=== PATIENT | female | born 1985 | race Caucasian/White ===

== ENCOUNTER 2018-03-19 20:04 | Emergency (ER) | payer BC ==
[2018-03-19 20:30] LABS: Urine Blood NEGATIVE (NEG); Urine Glucose NEGATIVE (NEG); Urine Protein NEGATIVE (NEG)
[2018-03-19 21:01] LABS: Absolute Lymphocytes (CBC) 1.5 K/uL (0.7-4.9); Absolute Monocytes 0.4 K/uL (0.1-1.3); Absolute Neutrophil 5.2 K/uL (1.8-8.0); Basophils % 0.7 % (0-1.3); Eosinophils % 1.6 % (0-4.4); Hematocrit 36.8 % (36.0-45.0); Lymphocytes % 20.1 % (15.3-44.8); MCH 28.7 pg (27.0-35.0); MCV 82.8 fL (80-100); MPV 9.1 fL (7.6-11.3); Monocytes % 6.1 % (3.3-12.3); RBC Red Blood Cell Count 4.44 M/uL (3.86-4.86)
[2018-03-19 21:05] LABS: Protime INR 0.99
[2018-03-19 21:10] LABS: Bicarbonate 31 mEq/L (21-31); Glucose Level 123 mg/dL (65-120); Potassium 3.8 mEq/L (3.6-5.0); Sodium Level 139 mEq/L (135-145)
[2018-03-19 21:16] LABS: ALT/SGPT 27 IU/L (10-60); AST/SGOT 20 IU/L (10-42); Albumin 4.1 g/dL (3.2-5.5); Alkaline Phosphatase 55 IU/L (42-121); BUN Blood Urea Nitrogen 12 mg/dL (6-20); Bilirubin Direct 0.1 mg/dL (0-0.2); Bilirubin Total 0.5 mg/dL (0.3-1.2); Magnesium 1.6 mg/dL (1.8-2.5); Protein, Total 6.6 g/dL (6.0-8.3)
--- NOTE | 2018-03-19 21:40 | RAD REPORT ---
EXAM DESCRIPTION: [place] Single View03/19/2018 9:33 pm CLINICAL HISTORY: Chest pain COMPARISON: none FINDINGS: The lungs appear clear of acute infiltrate. The heart is normal size IMPRESSION: No acute abnormalities displayed
--- NOTE | 2018-03-19 22:12 | ER ---
Nurse's Notes [facility] Name: Isadora Pacheco Age: 32 yrs Sex: Female : 1985 Arrival Date: 03/19/2018 Time: 20:05 Bed 18 Private MD: Casimiro Sanders S Diagnosis: Bronchitis, not specified as acute or chronic Presentation: 03/19 20:08 Presenting complaint: Patient states: that she is having severe chest pain that fc radiates to her back. Also having shortness of breath but denies any nausea or vomiting. Has had cough for 1 month but chest pain has been on and off x 3 months. Pt has seen PCP Dr Sanders for this and has stress test scheduled for March 24. Transition of care: patient was not received from another setting of care. Onset of symptoms was March 19, 2018 at 17:30. Initial Sepsis Screen: Does the patient meet any 2 criteria? No. Patient's initial sepsis screen is negative. Does the patient have a suspected source of infection? No. Patient's initial sepsis screen is negative. Care prior to arrival: None. 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 - Social history:: Smoking status: Patient/guardian denies using tobacco, Patient uses alcohol, but reports only rare drinking. - Family history:: not pertinent. Screenin:19 Abuse screen: Denies threats or abuse. Nutritional screening: No deficits noted. fc Tuberculosis screening: No symptoms or risk factors identified. Fall Risk None identified. Assessment: 20:55 General: Appears uncomfortable, Behavior is cooperative, anxious, crying. Pain: bs1 Complains of pain in chest Pain does not radiate. Pain began gradually, per patient this has been going on for a couple of months and got worse today that it made her very scared. Neuro: Level of Consciousness is awake, alert, obeys commands, Oriented to person, place, time, situation, Appropriate for age Orthoptist are equal bilaterally. Cardiovascular: Reports chest pain, Denies palpitations, Heart tones S1 S2 present Capillary refill < 3 seconds Patient's skin is warm and dry. Respiratory: Reports shortness of breath with chest pain cough that is non-productive, Airway is patent Trachea midline Respiratory effort is even, unlabored, Respiratory pattern is regular, symmetrical, Breath sounds are clear bilaterally. GI: No deficits noted. No signs and/or symptoms were reported involving the gastrointestinal system. : No deficits noted. No signs and/or symptoms were reported regarding the genitourinary system. EENT: No deficits noted. No signs and/or symptoms were reported regarding the EENT system. Derm: Skin is intact, Skin is pink, warm \T\ dry. 21:49 Reassessment: No changes from previously documented assessment. Patient and/or family bs1 updated on plan of care and expected duration. Pain level reassessed. Patient is alert, oriented x 3, equal unlabored respirations, skin warm/dry/pink. 22:45 Reassessment: Patient appears in no apparent distress at this time. Patient and/or bs1 family updated on plan of care and expected duration. Pain level reassessed. Patient is alert, oriented x 3, equal unlabored respirations, skin warm/dry/pink. 23:36 Reassessment: Patient appears in no apparent distress at this time. Patient and/or bs1 family updated on plan of care and expected duration. Pain level reassessed. Patient is alert, oriented x 3, equal unlabored respirations, skin warm/dry/pink. Patient states feeling better. Patient states symptoms have improved. Vital Signs: 20:08 BP 135 / 85; Pulse 74; Resp 18; Temp 98.6(TE); Pulse Ox 100% on R/A; Weight 79.83 kg fc (R); Height 5 ft. 2 in. (157.48 cm) (R); Pain 4/10; 21:08 BP 122 / 72; Pulse 56; Resp 18; Pulse Ox 100% on R/A; Pain 0/10; bs1 22:08 BP 110 / 70; Pulse 58; Resp 16; Pulse Ox 99% on R/A; bs1 23:35 BP 111 / 63; Pulse 53; Resp 18; Pulse Ox 100% on R/A; Pain 0/10; bs1 20:08 Body Mass Index 32.19 (79.83 kg, 157.48 cm) ED Course: 20:05 Patient arrived in ED. es 20:08 Casimiro Sanders MD is Private Physician. es 20:08 Arm band placed on Patient placed in an exam room, on a stretcher. fc 20:14 Karley Somers MD is Attending Physician. ma2 20:17 Triage completed. fc 20:19 Patient has correct armband on for positive identification. Placed in gown. Bed in low fc position. Call light in reach. 20:23 EKG done, by ED staff, reviewed by Karley Somers MD. fc 20:31 Jessica Cameron RN is Primary Nurse. bs1 20:45 Inserted saline lock: 22 gauge in right antecubital area, using aseptic technique. bs1 20:57 groundwater monitoring technician on. Pulse ox on. NIBP on. Sitter at bedside. Warm blanket given. bs1 20:58 Patient maintains SpO2 saturation greater than 95% on room air. bs1 21:33 XRAY Chest (1 view) In Process Unspecified. EDMS 21:33 X-ray completed. Portable x-ray completed in exam room. Patient tolerated procedure ag1 well. 23:35 No provider procedures requiring assistance completed. IV discontinued, bleeding bs1 controlled, No redness/swelling at site. Pressure dressing applied. Administered Medications: No medications were administered Outcome: 22:11 Discharge ordered by . ma2 23:35 Discharged to home ambulatory, with significant other. bs1 23:35 Condition: stable 23:35 Discharge instructions given to patient, Instructed on discharge instructions, follow up and referral plans. medication usage, Demonstrated understanding of instructions, follow-up care, medications, Prescriptions given X 2. 23:36 Patient left the ED. bs1 Signatures: Dispatcher [employer] EDWV Arminda Peralta Felicia, RN RN Mleany Hernandez ag1 Jessica Cameron, MIRELLA RN bs1 Karley Somers MD MD [facility]
--- NOTE | 2018-03-19 22:12 | EDPHYS ---
Physician Documentation [facility] Name: Isadora Pacheco Age: 32 yrs Sex: Female : 1985 Arrival Date: 03/19/2018 Time: 20:05 Bed 18 Private MD: Casimiro Sanders S ED Physician Karley Somers HPI: 03/19 20:38 This 32 yrs old Female presents to ER via Ambulatory with complaints of Chest ma2 Pain. 20:38 The patient or guardian reports chest pain that is located primarily in the anterior ma2 chest wall, chest diffusely. The pain radiates to the left shoulder. Associated signs and symptoms: Pertinent positives: cough, Pertinent negatives: abdominal pain, lower extremity pain, lower extremity swelling, lightheadedness, nausea, near syncope, shortness of breath, syncope, vomiting. Severity of pain: At its worst the pain was moderate in the emergency department the pain has improved. 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 - Social history:: Smoking status: Patient/guardian denies using tobacco, Patient uses alcohol, but reports only rare drinking. - Family history:: not pertinent. ROS: 20:38 Constitutional: Negative for fever, chills, and weight loss, Eyes: Negative for injury, ma2 pain, redness, and discharge, ENT: Negative for injury, pain, and discharge, Neck: Negative for injury, pain, and swelling, Abdomen/GI: Negative for abdominal pain, nausea, diarrhea, and constipation, Back: Negative for injury and pain, : Negative for injury, bleeding, discharge, and swelling, MS/Extremity: Negative for injury and deformity, Skin: Negative for injury, rash, and discoloration, Neuro: Negative for headache, weakness, numbness, tingling, and seizure, Psych: Negative for depression, anxiety, suicide ideation, homicidal ideation, and hallucinations, Allergy/Immunology: Negative for hives, rash, and allergies, Endocrine: Negative for neck swelling, polydipsia, polyuria, polyphagia, and marked weight changes, Hematologic/Lymphatic: Negative for swollen nodes, abnormal bleeding, and unusual bruising. 20:38 Cardiovascular: Positive for chest pain, orthopnea. 20:38 Respiratory: Positive for cough, orthopnea, Negative for hemoptysis, orthopnea. Exam: 20:38 Constitutional: This is a well developed, well nourished patient who is awake, alert, ma2 and in no acute distress. Head/Face: Normocephalic, atraumatic. ENT: Nares patent. No nasal discharge, no septal abnormalities noted. Tympanic membranes are normal and external auditory canals are clear. Oropharynx with no redness, swelling, or masses, exudates, or evidence of obstruction, uvula midline. Mucous membranes moist. Neck: Trachea midline, no thyromegaly or masses palpated, and no cervical lymphadenopathy. Supple, full range of motion without nuchal rigidity, or vertebral point tenderness. No Meningismus. 20:38 Chest/axilla: Normal chest wall appearance and motion. Nontender with no deformity. No lesions are appreciated. Cardiovascular: Regular rate and rhythm with a normal S1 and S2. No gallops, murmurs, or rubs. Normal PMI, no JVD. No pulse deficits. Respiratory: Lungs have equal breath sounds bilaterally, clear to auscultation and percussion. No rales, rhonchi or wheezes noted. No increased work of breathing, no retractions or nasal flaring. Abdomen/GI: Soft, non-tender, with normal bowel sounds. No distension or tympany. No guarding or rebound. No evidence of tenderness throughout. 20:38 ENT: Exam is negative for 20:38 Chest/axilla: Palpation: reproducible chest pain . 20:38 Cardiovascular: Exam negative for Rate: normal, Rhythm: regular, Pulses: no pulse deficits are appreciated, Edema: is not appreciated. Vital Signs: 20:08 BP 135 / 85; Pulse 74; Resp 18; Temp 98.6(TE); Pulse Ox 100% on R/A; Weight 79.83 kg fc (R); Height 5 ft. 2 in. (157.48 cm) (R); Pain 4/10; 21:08 BP 122 / 72; Pulse 56; Resp 18; Pulse Ox 100% on R/A; Pain 0/10; bs1 22:08 BP 110 / 70; Pulse 58; Resp 16; Pulse Ox 99% on R/A; bs1 23:35 BP 111 / 63; Pulse 53; Resp 18; Pulse Ox 100% on R/A; Pain 0/10; bs1 20:08 Body Mass Index 32.19 (79.83 kg, 157.48 cm) fc MDM: 20:15 Patient medically screened. ma2 20:38 Differential diagnosis: acute myocardial infarction, chest wall pain, gastritis, ma2 gastroesophageal reflux disease (GERD), pericarditis, pleurisy, pneumothorax, unstable angina. HEART Score: History: Slightly Suspicious (0), ECG: Normal (0), Age: < or = 45 years (0), Risk Factors: No Risk Factors Known (0), Troponin: < or = 1 x Normal Limit (0). The patient's deep vein thrombosis risk score was calculated as follows: Total Score: 0. This patient was found to be at low risk for a deep vein thrombosis by using the Well's assessment criteria. The patient's pulmonary embolism risk score was calculated as follows: Total Score: 0-2 points. This patient was found to be at low risk for a pulmonary embolism by using the Well's assessment criteria. NEIDA Risk Score: TOTAL SCORE = 0. 22:10 Data reviewed: vital signs, nurses notes, EMS record, lab test result(s), EKG. ma2 Counseling: I had a detailed discussion with the patient and/or guardian regarding: the historical points, exam findings, and any diagnostic results supporting the discharge/admit diagnosis, the need for outpatient follow up, the need for further work-up and treatment in the hospital. 03/19 20:28 Order name: Urine Dipstick--Ancillary (enter results); Complete Time: 21:14 em1 03/19 20:28 Order name: Urine --Ancillary (enter results); Complete Time: 21:14 [facility] 03/19 20:38 Order name: Basic Metabolic Panel; Complete Time: 21:29 2 03/19 20:38 Order name: BNP; Complete Time: 21:29 nj2 03/19 20:38 Order name: CBC with Diff; Complete Time: 21:14 nj2 03/19 20:38 Order name: LFT's; Complete Time: 21:29 03/19 20:28 Order name: Urine Dipstick-Ancillary (obtain specimen); Complete Time: 20:28 03/19 20:28 Order name: Urine Test (obtain specimen); Complete Time: 20:28 03/19 20:38 Order name: Magnesium; Complete Time: 21:29 03/19 20:38 Order name: PT-INR; Complete Time: 21:14 nj03/19 20:38 Order name: Ptt, Activated; Complete Time: 21:14 03/19 20:38 Order name: Troponin (emerg Dept Use Only); Complete Time: 21:29 03/19 20:38 Order name: XRAY Chest (1 view); Complete Time: 21:57 03/19 20:38 Order name: EKG; Complete Time: 20:38 03/19 20:38 Order name: Cardiac monitoring; Complete Time: 20:47 03/19 20:38 Order name: EKG - Nurse/Tech; Complete Time: 20:47 03/19 20:38 Order name: IV Saline Lock; Complete Time: 21:50 03/19 20:38 Order name: Labs collected and sent; Complete Time: 21:50 nj03/19 20:38 Order name: O2 Per Protocol; Complete Time: 20:48 03/19 20:38 Order name: O2 Sat Monitoring; Complete Time: 20:48 ma2 Administered Medications: No medications were administered Disposition: 03/19/18 22:11 Discharged to Home. Impression: Bronchitis, not specified as acute or chronic. - Condition is Stable. - Prescriptions for Tylenol- Codeine #3 300-30 mg Oral Tablet - take 2 tablet by ORAL route every 6 hours As needed; 30 tablet. Zithromax Z- Stevan 250 mg Oral Tablet - take 1 tablet by ORAL route as directed for 5 days Day 1 - take two (2) tablets one time. Day 2, 3, 4 , 5 take one (1) tablet once daily.; 6 tablet. - Medication Reconciliation Form, Thank You Letter, Antibiotic Education, Prescription Opioid Use form. - Follow up: Private Physician; When: Tomorrow; Reason: Continuance of care. - Problem is new. - Symptoms are unchanged. Signatures: Dispatcher [facility]HoUN[facility] Children's HospitalMarquita Orozco RN RN fc Alonzo Trivedi em1 Jessica Cameron RN RN bs1 Karley Somers MD MD ma2
--- NOTE | 2018-03-20 06:13 | EKG ---
Test Date: 2018-03-19 Test Time: 20:21:15 [employer]ing [employer] Bobbin Winder: AAKASH MEASUREMENT RESULTS: Intervals: Rate: 71 DC: 174 QRSD: 90 QT: 382 QTc: 415 [place]: P: 59 DC: 174 QRS: 68 T: 60 INTERPRETIVE STATEMENTS: Normal sinus rhythm Normal ECG No previous ECG available for comparison Electronically Signed On 03-20-18 06:12:32 CDT by Abiodun Arroyo
== END 2018-03-19 23:36 | disposition home or self-care (01) ==
LOC: ER 20:04
DX: J40 Bronchitis, not specified as acute or chronic (principal)
CPT/HCPCS: 36415; 71045; 80048; 80076; 81003; 81025; 83735; 83880; 84484; 85025; 85610; 85730; 93005; 99285

== ENCOUNTER 2018-06-23 00:24 | Emergency (ER) | payer BC ==
--- OUTSIDE RECORDS SUMMARY | 2018-06-23 00:27 | XMS REPORT | Continuity of Care Document ---
:1985 Author Organization Interface Problems Problem Status Onset Classification Date Comments Source Date Reported SOB, CHEST Active [facility] 8 UNK Active [facility] 8 Medications Medication Details Route Status Patient Ordering Order Source Instructions Provider Date ketOROLAC IM, ONCE Inactive (ANES) 2017 dexamethasone Route: IV, Drug Inactive (ANES) form: INJ, 2017 ONCE, Stop date: 04/01/18 14:12:00 CDT ondansetron Route: IV, Drug Inactive (ANES) form: INJ, 2017 ONCE, Stop date: 04/01/18 14:02:00 CDT fentaNYL (ANES) Route: IV, Drug Inactive form: INJ, 2017 ONCE, Stop date: 04/01/18 14:02:00 CDT lidocaine Route: IV, Drug Inactive (ANES) form: INJ, 2017 ONCE, Stop date: 04/01/18 14:02:00 CDT propofol (ANES) Route: IV, Drug Inactive form: INJ, 2017 ONCE, Stop date: 04/01/18 14:02:00 CDT Ketorolac 10 mg=1 tab, Active Tromethamine 10 PO, Q6H, X 5 2017 MG Oral Tablet day, # 20 tab, 0 Refill(s) Acetaminophen 1 tab, PO, Q4H, Active 300 MG / PRN Pain, X 7 2017 Codeine day, # 42 tab, Phosphate 30 MG 0 Refill(s) Oral Tablet [Tylenol with Codeine #3] midazolam Route: IV, Drug Inactive (ANES) form: SOLN, 2017 ONCE, Stop date: 04/01/18 13:57:00 CDT Lactated Route: IV, Inactive Ringers Total Volume: 2017 Injection IV 1,000, Start (ANES) 1000 mL date: 04/01/18 13:15:00 CDT, Stop date: 04/01/18 14:15:00 CDT Lactated 1,000 mL, Rate: Inactive Ringers IV 20 ml/hr, 2017 1,000 mL Infuse over: 50 hr, Route: IV, Dosing Weight 80.455 kg, Total Volume: 1,000, Start date: 04/01/18 12:51:00 CDT, Duration: 1 day, Stop date: 04/02/18 12:50:00 CDT, 1.9, m2 Exparel 20 mL, Route: Inactive InFILtration( 2017 [facility] jj), Drug Form: INJ, Dosing Weight 80.455, kg, ONCE, For Hemorrhoidectom y, Start date: 04/01/18 12:31:00 CDT, Stop date: 04/01/18 12:31:00 CDTNotes: (Same as: Exparel) NOT FOR IV use Postoperative analgesia: Infiltration (local): Dose is based on surgical site and volume required to cover the area (in general, the maximum total dose is 266 mg). Botulinum Toxin 100 unit, Inactive Type A Route: 2017 INTRADERM, Drug form: INJ, ONCE, Dosing Weight 80.455, kg, Start date: 03/31/18 9:59:00 CDT, Stop date: 03/31/18 9:59:00 CDTNotes: "TO BE RECONSTITUTED AND ADMINISTERED ONLY BY A PHYSICIAN" Reconstitute with preservative free NS only. Stability=4 hours after reconstitution. (Same As: Botox) WASTE: F/P - Red; E -Red Allergies, Adverse Reactions, Alerts Substance Category Reaction Severity Reaction Status Date Comments Source type Reported NKDA Assertion Drug Active allergy [facility] Immunizations Immunization Date Given Site Status Last Updated Comments Source Results Order Name Results Value Reference Date Interpretation Comments Source Range URINE CHEM U Preg Negative Negative 05/03 [facility] (05/03/18 3:29 PM) Chest w/wo Chest w/wo Clinical Indication: Left shoulder pain, chest and back pain. 05/03 - contrast contrast CT /2017 - CT Comparison: None Read by: Patsy Diego MD Dictated Date/time: 05/03/18 17:08 TECHNIQUE: Sequential trans-axial images were obtained through the chest and upper abdomen before and after administration of iodinated contrast. Coronal and sagittal reconstructions were obtained. 100 Electronically Signed by: Patsy Diego MD 05/03/18 17:12 mL of Omnipaque contrast material was used for the exam. FINAL REPORT CT Radiation Dose DLP 506 mGy-cm FINDINGS: LUNG PARENCHYMA: No lung nodules. No interstitial lung disease. PLEURAL SPACES: No pleural effusions.No pneumothorax. AIRWAY: The central airway is normal without deviation. No endobronchial lesions or bronchiectasis. HEART: Heart size normal. There is no pericardial effusion. No coronary artery atherosclerosis. VASCULAR STRUCTURES: No aneurysmal dilatation of the thoracic aorta. Aortic arch branches demonstrate no high-grade stenosis or dissection. Main pulmonary artery caliber within normal limits. No obvious filling defects within the partially imaged pulmonary arterial branches. Superior vena cava within normal limits. MEDIASTINUM AND SOFT TISSUES: No pathologically enlarged axillary, supraclavicular, mediastinal, hilar, or retrocrural lymph nodes. Subcentimeter low-density nodule in the right lobe of the thyroid gland. Thyroid gland otherwise within normal limits. MUSCULOSKELETAL STRUCTURES: No acute fracture or dislocation. No lytic or blastic lesion. VISUALIZED UPPER ABDOMEN: No acute pathology identified. IMPRESSION: 1. Subcentimeter right thyroid lobe nodule. If indicated this can be evaluated on a nonemergent basis with thyroid ultrasound. 2. Otherwise normal chest CT without and with contrast. SL: [id number] URINE CHEM U Preg Negative Negative 04/01 [facility] (04/01/18 12:22 PM) HEMATOLOGY Monocytes # 0.6 K/CMM 0.0 - 0.8 03/31 [facility] HEMATOLOGY Eosinophils 0.2 K/CMM 0.0 - 0.5 03/31 [facility] HEMATOLOGY Basophils 0.3 % 0.0 - 1.0 03/31 [facility] HEMATOLOGY Lymphocytes 2.0 K/CMM 1.0 - 5.5 03/31 [facility] HEMATOLOGY Segs-Bands # 5.8 K/CMM 1.5 - 8.1 03/31 [facility] HEMATOLOGY Segs 67.5 % 45.0 - 03/31 75. [facility] HEMATOLOGY Lymphocytes 23.5 % 20.0 - 03/31 40.0 /2017 [facility] HEMATOLOGY Monocytes 6.9 % 2.0 - 12.0 / MH /2017 [facility] HEMATOLOGY Eosinophils 1.8 % 0.0 - 4.0 / /2017 [facility] HEMATOLOGY PT 11.9 s 12.0 - 03/31 MH 14.7 /2017 [facility] HEMATOLOGY INR 0.88 0.85 - 03/31 MH 1.17 /2017 [facility] HEMATOLOGY PTT 28.4 s 22.9 - 03/31 MH 35.8 /2017 [facility] HEMATOLOGY MPV 9.8 fL 7.4 - 10.4 03/31 /2017 [facility] HEMATOLOGY WBC 8.6 K/CMM 3.7 - 10.4 03/31 [facility] HEMATOLOGY RBC 4.61 M/CMM 4.20 - 03/31 5.40 /2017 [facility] HEMATOLOGY Hgb 13.3 g/dL 12.0 - 03/31 16.0 /2017 [facility] HEMATOLOGY MCV 85.0 fL 80.0 - 03/31 98.0 /2017 [facility] MCH 28.8 pg 27.0 - 03/31 31.0 /2017 [facility] HEMATOLOGY Hct 39.2 % 36.0 - 03/31 48.0 /2017 [facility] HEMATOLOGY MCHC 33.8 g/dL 32.0 - 03/31 36.0 /2017 [facility] HEMATOLOGY RDW 13.6 % 11.5 - 03/31 14.5 /2017 [facility] Platelet 155 K/CMM 133 - 450 03/31 [facility] URINE AND UA <=1.0 0.1 - 1.0 03/31 [facility] Urobilinogen mg/dL /2017 [facility] URINE AND UA Color Ltyellow 03/31 [facility] URINE AND UA Bili Negative Negative 03/31 [facility] *NA* (03/31/18 9:42 AM) URINE AND UA Blood Negative Negative 03/31 [facility] /2017 [facility] (03/31/18 9:42 AM) URINE AND UA Ketones Negative Negative 03/31 [facility] mg/dL mg/dL /2017 [facility] URINE AND UA Nitrite Negative Negative 03/31 [facility] /2017 [facility] (03/31/18 9:42 AM) URINE AND UA Glucose Negative Negative 03/31 [facility] mg/dL mg/dL URINE AND UA Protein Negative Negative 03/31 [facility] mg/dL mg/dL [facility] URINE AND UA pH 5.0 5.0 - 8.0 03/31 [facility] URINE AND UA Spec Grav 1.017 <=1.030 03/31 [facility] URINE AND UA Sq Epi Moderate Few /LPF 03/31 [facility] /LPF [facility] URINE AND UA Bacteria Occasional None Seen 03/31 [facility] /HPF /HPF /2017 [facility] URINE AND UA WBC 3 /HPF 0 - 5 03/31 [facility] URINE AND UA RBC 1 /HPF 0 - 2 03/31 [facility] URINE AND UA Leuk Est Moderate Negative 03/31 [facility] *ABN* (03/31/18 9:42 AM) URINE AND UA Turbidity Slight Clear 03/31 [facility] *ABN* (03/31/18 9:42 AM) Vital Signs Vital Sign Value Date Comments Source Systolic (mm Hg) 113 04/01/2018 [facility] Diastolic (mm Hg) 55 04/01/2018 [facility] Respitory Rate 16 04/01/2018 [facility] Systolic (mm Hg) 105 04/01/2018 [facility] Diastolic (mm Hg) 59 04/01/2018 [facility] Respitory Rate 14 04/01/2018 [facility] Respitory Rate 15 04/01/2018 [facility] Systolic (mm Hg) 111 04/01/2018 [facility] Diastolic (mm Hg) 61 04/01/2018 [facility] Heart Rate 75 04/01/2018 [facility] Temperature Oral (F) 97.8 F 03/31/2018 [facility] Heart Rate 79 03/31/2018 [facility] Height 157.48 cm 03/31/2018 [facility] BMI Calculated 32.44 03/31/2018 [facility] Weight 80.455 03/31/2018 [facility] Encounters Location Location Encounter Encounter Reason Attending ADM DC Status Source Details Type Number For Provider Date Date Visit [id number] [facility] [id number] Philip 05/03 05/04 [facility] /2017 [facility] Procedures Procedure Code Date Perfomer Comments Source Operation [id number] 04/29/2015 [facility] Laparotomy [id number] 11/29/2006 [facility]
--- OUTSIDE RECORDS SUMMARY | 2018-06-23 00:27 | XMS REPORT | Summary of Care ---
:[address] [facility] Address [address] [place], [place] [address]- Encounter HQ Encntr_alias(FIN) [id number] Date(s): 05/03/18 - 05/03/18 [facility] [address] [place] [address]- [phone] Discharge Disposition: Home or Self Care Attending Physician: Philip Aguayo MD Referring Physician: Philip Aguayo MD Vital Signs No data available for this section Problem List No data available for this section Allergies, Adverse Reactions, Alerts Substance Reaction Severity Status NKDA Active Medications No data available for this section Results URINE CHEM Most recent to oldest [Reference Range]: 1 U Preg [Negative] Negative (05/03/18 3:29 PM) Immunizations No data available for this section Procedures Procedure Date Related Diagnosis Body Site Status Operation 04/29/15 Completed Laparotomy 2006 Completed Social History Social History Type Response Smoking Status Never smoker; Exposure to Tobacco Smoke None; Cigarette Smoking Last 365 Days No; Reg Smoking Cessation Counseling No entered on: 03/31/18 Assessment and Plan No data available for this section
--- OUTSIDE RECORDS SUMMARY | 2018-06-23 00:27 | XMS REPORT | Summary of Care ---
:1985 Author Organization [facility] Address [address] [place], [place] [address]- Encounter HQ Latrell_marciano(FIN) [id number] Date(s): 04/01/18 - 04/01/18 [facility] [address] [place] [address]- Discharge Disposition: Home or Self Care Attending Physician: Kendra Ro V Referring Physician: Kendra Ro V Vital Signs Most recent to oldest [Reference 1 2 3 Range]: Height 157.48 cm (03/31/18 9:28 AM) Temperature Oral [96.4-99.1 DegF] 97.8 DegF (03/31/18 9:29 AM) Blood Pressure [90-140/60-90 113/55 mmHg 105/59 mmHg 111/61 mmHg mmHg] (04/01/18 3:00 PM) (04/01/18 2:45 PM) (04/01/18 2:30 PM) Respiratory Rate [14-20 BRMIN] 16 BRMIN 14 BRMIN 15 BRMIN (04/01/18 3:00 PM) (04/01/18 2:45 PM) (04/01/18 2:30 PM) Peripheral Pulse Rate [60-100 75 bpm 79 bpm bpm] (04/01/18 12:25 PM) (03/31/18 9:29 AM) Weight 80.455 kg (03/31/18 9:28 AM) Body Mass Index 32.44 m2 (03/31/18 9:28 AM) Problem List No data available for this section Allergies, Adverse Reactions, Alerts Substance Reaction Severity Status NKDA Active Medications dexamethasone (ANES) Route: IV, Drug form: INJ, ONCE, Stop date: 04/01/18 14:12:00 CDT Start Date: 04/01/18 Stop Date: 04/01/18 Status: CompletedExparel 20 mL, Route: InFILtration(local), Drug Form: INJ, Dosing Weight 80.455, kg, ONCE, For Hemorrhoidectomy, Start date: 04/01/18 12:31:00 CDT, Stop date: 12:31:00 CDT Notes: (Same as: Exparel) NOT FOR IV use Postoperative analgesia: Infiltration (local): Dose is based on surgical site and volume required to cover the area (in general, the maximum total dose is 266 mg). Start Date: 04/01/18 Stop Date: 04/01/18 Status: DiscontinuedfentaNYL (ANES) Route: IV, Drug form: INJ, ONCE, Stop date: 04/01/18 14:02:00 CDT Start Date: 04/01/18 Stop Date: 04/01/18 Status: CompletedketOROLAC (ANES) IM, ONCE Start Date: 04/01/18 Stop Date: 04/01/18 Status: CompletedketOROLAC (ANES) IV, ONCE Start Date: 04/01/18 Stop Date: 04/01/18 Status: CompletedketOROLAC 10 mg oral tablet 10 mg=1 tab, PO, Q6H, X 5 day, # 20 tab, 0 Refill(s) Start Date: 04/01/18 Stop Date: 04/06/18 Status: OrderedLactated Ringers Injection IV (ANES) 1000 mL Route: IV, Total Volume: 1,000, Start date: 04/01/18 13:15:00 CDT, Stop date: 14:15:00 CDT Start Date: 04/01/18 Stop Date: 04/01/18 Status: CompletedLactated Ringers IV 1,000 mL 1,000 mL, Rate: 20 ml/hr, Infuse over: 50 hr, Route: IV, Dosing Weight 80.455 kg , Total Volume: 1,000, Start date: 04/01/18 12:51:00 CDT, Duration: 1 day, Stop date: 04/02/18 12:50:00 CDT, 1.9, m2 Start Date: 04/01/18 Stop Date: 04/01/18 Status: Discontinuedlidocaine (ANES) Route: IV, Drug form: INJ, ONCE, Stop date: 04/01/18 14:02:00 CDT Start Date: 04/01/18 Stop Date: 04/01/18 Status: Completedmidazolam (ANES) Route: IV, Drug form: SOLN, ONCE, Stop date: 04/01/18 13:57:00 CDT Start Date: 04/01/18 Stop Date: 04/01/18 Status: CompletedONAbotulinumtoxinA 100 unit, Route: INTRADERM, Drug form: INJ, ONCE, Dosing Weight 80.455, kg, Start date: 03/31/18 9:59:00 CDT, Stop date: 03/31/18 9:59:00 CDT Notes: "TO BE RECONSTITUTED AND ADMINISTERED ONLY BY A PHYSICIAN"Reconstitute with preservative freeNS only. Stability=4 hours after reconstitution. (Same As : Botox)WASTE: F/P - Red; E -Red Start Date: 03/31/18 Stop Date: 03/31/18 Status: Orderedondansetron (ANES) Route: IV, Drug form: INJ, ONCE, Stop date: 04/01/18 14:02:00 CDT Start Date: 04/01/18 Stop Date: 04/01/18 Status: Completedpropofol (ANES) Route: IV, Drug form: INJ, ONCE, Stop date: 04/01/18 14:02:00 CDT Start Date: 04/01/18 Stop Date: 04/01/18 Status: CompletedTylenol with Codeine #3 oral tablet 1 tab, PO, Q4H, PRN Pain, X 7 day, # 42 tab, 0 Refill(s) Start Date: 04/01/18 Stop Date: 04/08/18 Status: Ordered Results URINE CHEM Most recent to oldest [Reference Range]: 1 U Preg [Negative] Negative (04/01/18 12:22 PM) URINE AND STOOL Most recent to oldest [Reference Range]: 1 UA Turbidity [Clear] Slight *ABN* (03/31/18 9:42 AM) UA Color Ltyellow *NA* (03/31/18 9:42 AM) UA pH [5.0-8.0] 5.0 (03/31/18 9:42 AM) UA Spec Grav [<=1.030] 1.017 (03/31/18 9:42 AM) UA Glucose [Negative mg/dL] Negative mg/dL *NA* (03/31/18 9:42 AM) UA Blood [Negative] Negative (03/31/18 9:42 AM) UA Ketones [Negative mg/dL] Negative mg/dL *NA* (03/31/18 9:42 AM) UA Protein [Negative mg/dL] Negative mg/dL (03/31/18 9:42 AM) UA Urobilinogen [0.1-1.0 mg/dL] <=1.0 mg/dL *NA* (03/31/18 9:42 AM) UA Bili [Negative] Negative *NA* (03/31/18 9:42 AM) UA Leuk Est [Negative] Moderate *ABN* (03/31/18 9:42 AM) UA Nitrite [Negative] Negative (03/31/18 9:42 AM) UA WBC [0-5 /HPF] 3 /HPF (03/31/18 9:42 AM) UA RBC [0-2 /HPF] 1 /HPF (03/31/18 9:42 AM) UA Bacteria [None Seen /HPF] Occasional /HPF *NA* (03/31/18 9:42 AM) UA Sq Epi [Few /LPF] Moderate /LPF *ABN* (03/31/18 9:42 AM) HEMATOLOGY Most recent to oldest [Reference Range]: 1 WBC [3.7-10.4 K/CMM] 8.6 K/CMM (03/31/18 9:42 AM) RBC [4.20-5.40 M/CMM] 4.61 M/CMM (03/31/18 9:42 AM) Hgb [12.0-16.0 g/dL] 13.3 g/dL (03/31/18 9:42 AM) Hct [36.0-48.0 %] 39.2 % (03/31/18 9:42 AM) MCV [80.0-98.0 fL] 85.0 fL (03/31/18 9:42 AM) MCH [27.0-31.0 pg] 28.8 pg (03/31/18 9:42 AM) MCHC [32.0-36.0 g/dL] 33.8 g/dL (03/31/18 9:42 AM) RDW [11.5-14.5 %] 13.6 % (03/31/18 9:42 AM) MPV [7.4-10.4 fL] 9.8 fL (03/31/18 9:42 AM) Platelet [133-450 K/CMM] 155 K/CMM (03/31/18 9:42 AM) Segs [45.0-75.0 %] 67.5 % (03/31/18 9:42 AM) Lymphocytes [20.0-40.0 %] 23.5 % (03/31/18 9:42 AM) Monocytes [2.0-12.0 %] 6.9 % (03/31/18 9:42 AM) Eosinophils [0.0-4.0 %] 1.8 % (03/31/18 9:42 AM) Basophils [0.0-1.0 %] 0.3 % (03/31/18 9:42 AM) Segs-Bands # [1.5-8.1 K/CMM] 5.8 K/CMM (03/31/18 9:42 AM) Lymphocytes # [1.0-5.5 K/CMM] 2.0 K/CMM (03/31/18 9:42 AM) Monocytes # [0.0-0.8 K/CMM] 0.6 K/CMM (03/31/18 9:42 AM) Eosinophils # [0.0-0.5 K/CMM] 0.2 K/CMM (03/31/18 9:42 AM) PT [12.0-14.7 seconds] 11.9 seconds *LOW* (03/31/18 9:42 AM) INR [0.85-1.17] 0.88 (03/31/18 9:42 AM) PTT [22.9-35.8 seconds] 28.4 seconds (03/31/18 9:42 AM) Immunizations No data available for this section [...]
[2018-06-23 01:16] LABS: Absolute Lymphocytes (CBC) 2.2 K/uL (0.7-4.9); Absolute Monocytes 0.6 K/uL (0.1-1.3); Absolute Neutrophil 5.6 K/uL (1.8-8.0); Basophils % 0.5 % (0-1.3); Eosinophils % 1.6 % (0-4.4); Hematocrit 38.9 % (36.0-45.0); Lymphocytes % 25.7 % (15.3-44.8); MCV 82.6 fL (80-100); MPV 9.3 fL (7.6-11.3); Monocytes % 7.4 % (3.3-12.3)
[2018-06-23 01:32] LABS: ALT/SGPT 27 U/L (12-78); AST/SGOT 14 U/L (15-37); Albumin 4.2 g/dL (3.4-5.0); Alkaline Phosphatase 71 U/L (45-117); Amylase Level 48 U/L (25-115); BUN Blood Urea Nitrogen 15 mg/dL (7-18); Bicarbonate 29 mmol/L (21-32); Bilirubin Direct < 0.1 mg/dL (0-0.2); Bilirubin Total 0.3 mg/dL (0.2-1.0); Glucose Level 130 mg/dL (74-106); Lipase 192 U/L (73-393); Potassium 3.4 mmol/L (3.5-5.1); Protein, Total 7.3 g/dL (6.4-8.2); Sodium Level 142 mmol/L (136-145)
[2018-06-23 01:50] LABS: Urine Amorphous Sediment 1+ /HPF (NONE SEEN); Urine Bacteria <20 /HPF (<20); Urine Culture Reflex Order NOT NEEDED; Urine RBC <5 /HPF (NONE SEEN)
[2018-06-23 01:50] LABS: Urine Blood NEGATIVE (NEG); Urine Glucose NEGATIVE (NEG); Urine Protein NEGATIVE (NEG); Urine Specific Gravity 1.015 (1.005-1.030); Urine pH 7.5 (5.0-7.0)
[2018-06-23] MEDS ORDERED: POTASSIUM CL SA 10 MEQ TAB PO ONE (02:15)
--- NOTE | 2018-06-23 04:31 | ER ---
Nurse's Notes [facility] Name: Isadora Pacheco Age: 32 yrs Sex: Female : 1985 Arrival Date: 06/23/2018 Time: 00:24 Bed 7 Private MD: Diagnosis: Abdominal tenderness;Hypokalemia Presentation: 06/23 00:37 Presenting complaint: Patient states: that she is having right upper abd pain that fc radiates around to the back. Had the same pain a couple of days ago and it went away after a few hrs. Denies any nausea, vomiting or diarrhea. Transition of care: patient was not received from another setting of care. Onset of symptoms was June 22, 2018 at 20:30. Risk Assessment: Do you want to hurt yourself or someone else? Patient reports no desire to harm self or others. Initial Sepsis Screen: Does the patient meet any 2 criteria? No. Patient's initial sepsis screen is negative. Does the patient have a suspected source of infection? No. Patient's initial sepsis screen is negative. Care prior to arrival: Medication(s) given: Aleve at 1830. 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 - Social history:: Smoking status: Patient/guardian denies using tobacco. - Ebola Screening: : Patient negative for fever greater than or equal to 101.5 degrees Fahrenheit, and additional compatible Ebola Virus Disease symptoms Patient denies exposure to infectious person Patient denies travel to an Ebola-affected area in the 21 days before illness onset. - Family history:: not pertinent. Screenin:45 Abuse screen: Denies threats or abuse. Denies injuries from another. Nutritional aa1 screening: No deficits noted. Tuberculosis screening: No symptoms or risk factors identified. Fall Risk None identified. Assessment: 00:45 General: Appears in no apparent distress. comfortable, Behavior is calm, cooperative, aa1 appropriate for age. Pain: Complains of pain in anterior aspect of right lateral abdomen and posterior aspect of right lateral abdomen Pain radiates to right low back and right mid back. Neuro: Level of Consciousness is awake, alert, obeys commands, Oriented to person, place, time, situation, Moves all extremities. Full function Gait is steady, Speech is normal. Cardiovascular: Denies chest pain, palpitations, shortness of breath. Respiratory: Airway is patent Respiratory effort is even, unlabored, Respiratory pattern is regular, symmetrical. GI: Abdomen is non-distended, Bowel sounds present X 4 quads. Abd is soft X 4 quads Abdomen is tender to palpation in right upper quadrant. : No signs and/or symptoms were reported regarding the genitourinary system. EENT: No signs and/or symptoms were reported regarding the EENT system. Derm: Skin is intact, is healthy with good turgor, Skin is pink, warm \T\ dry. Musculoskeletal: Circulation, motion, and sensation intact. Capillary refill < 3 seconds. 02:18 Reassessment: Patient appears in no apparent distress at this time. Patient and/or aa1 family updated on plan of care and expected duration. Pain level reassessed. Patient is alert, oriented x 3, equal unlabored respirations, skin warm/dry/pink. Pt taken to CT at this time. 03:30 Reassessment: Patient appears in no apparent distress at this time. Patient and/or aa1 family updated on plan of care and expected duration. Pain level reassessed. Patient is alert, oriented x 3, equal unlabored respirations, skin warm/dry/pink. Awaiting CT results. 04:41 Reassessment: PT D/C HOME AMBULATORY, DX WITH ABDOMINAL TENDERNESS AND HYPOKALEMIA. bp Vital Signs: 00:39 BP 109 / 52; Pulse 83; Resp 18; Temp 98.5(O); Pulse Ox 99% on R/A; Weight 79.38 kg; fc Height 5 ft. 2 in. (157.48 cm); Pain 5/10; 01:36 BP 98 / 72; Pulse 67; Resp 16; Pulse Ox 100% on R/A; aa1 02:45 BP 121 / 65; Pulse 63; Resp 16; Pulse Ox 100% on R/A; aa1 03:30 BP 103 / 61; Pulse 74; Resp 16; Pulse Ox 100% on R/A; aa1 04:30 BP 97 / 56; Pulse 54; Resp 14; Pulse Ox 99% ; bp 00:39 Body Mass Index 32.01 (79.38 kg, 157.48 cm) ED Course: 00:24 Patient arrived in ED. ds1 00:39 Triage completed. 00:45 Sudarshan Holliday MD is Attending Physician. [facility] 00:45 Patient has correct armband on for positive identification. Placed in gown. Bed in low aa1 position. Call light in reach. Pulse ox on. NIBP on. 00:49 Lorene Mariscal, RN is Primary Nurse. aa1 00:50 Initial lab(s) drawn, by ia, sent to lab. Urine collected: clean catch specimen, clear. aa1 Inserted saline lock: 20 gauge in right antecubital area, using aseptic technique. Blood collected. 01:00 Arm band placed on. bp 02:21 CT Abd/Pelvis - W/Contrast: iv only In Process Unspecified. EDMS 02:22 Patient moved to IN WALKED. 04:41 No provider procedures requiring assistance completed. IV discontinued, intact, bp bleeding controlled, No redness/swelling at site. Pressure dressing applied. Administered Medications: 02:15 Drug: Potassium Chloride 20 mEq Route: PO; aa1 04:40 Follow up: Response: No adverse reaction bp Outcome: 04:31 Discharge ordered by . [facility] 04:43 Discharged to home ambulatory. bp 04:43 Condition: stable 04:43 Discharge instructions given to patient, Instructed on discharge instructions, follow up and referral plans. medication usage, Demonstrated understanding of instructions, follow-up care, medications, Prescriptions given X 2. 04:43 Patient left the ED. bp Signatures: Dispatcher [employer] EDMS Lorene Mariscal, RN RN aa1 Sudarshan Holliday MD MD cha Hagler, Ervin Marquita Trejo RN RN Grisel Warner ds Chriss Rivers RN RN bp Corrections: (The following items were deleted from the chart) 04:43 04:30 BP 103 / 61; Pulse 67bpm; Resp 14bpm; Pulse Ox 99%; bp bp
--- NOTE | 2018-06-23 04:31 | EDPHYS ---
Physician Documentation [facility] Name: Isadora Pacheco Age: 32 yrs Sex: Female : 1985 Arrival Date: 06/23/2018 Time: 00:24 Bed 7 Private MD: Sudarshan Moran HPI: 06/23 01:58 This 32 yrs old Female presents to ER via Ambulatory with complaints of R malinda side Pain. 01:58 The patient presents with abdominal pain in the right upper quadrant. Onset: The malinda symptoms/episode began/occurred just prior to arrival. The patient complains of pain in the right mid back and right low back. The pain does not radiate. Onset: The symptoms/episode began/occurred 2 day(s) ago. Modifying factors: The symptoms are alleviated by nothing. the symptoms are aggravated by nothing. The symptoms do not radiate. Associated signs and symptoms: none. 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 - Social history:: Smoking status: Patient/guardian denies using tobacco. - Ebola Screening: : Patient negative for fever greater than or equal to 101.5 degrees Fahrenheit, and additional compatible Ebola Virus Disease symptoms Patient denies exposure to infectious person Patient denies travel to an Ebola-affected area in the 21 days before illness onset. - Family history:: not pertinent. ROS: 01:58 Constitutional: Negative for fever, chills, and weight loss, Eyes: Negative for injury, malinda pain, redness, and discharge, ENT: Negative for injury, pain, and discharge, Neck: Negative for injury, pain, and swelling, Cardiovascular: Negative for chest pain, palpitations, and edema, Respiratory: Negative for shortness of breath, cough, wheezing, and pleuritic chest pain, : Negative for injury, bleeding, discharge, and swelling, MS/Extremity: Negative for injury and deformity, Skin: Negative for injury, rash, and discoloration, Neuro: Negative for headache, weakness, numbness, tingling, and seizure, Psych: Negative for depression, anxiety, suicide ideation, homicidal ideation, and hallucinations, Allergy/Immunology: Negative for hives, rash, and allergies, Endocrine: Negative for neck swelling, polydipsia, polyuria, polyphagia, and marked weight changes, Hematologic/Lymphatic: Negative for swollen nodes, abnormal bleeding, and unusual bruising. 01:58 Abdomen/GI: Positive for abdominal pain. 01:58 Back: Positive for pain at rest, flank pain, on the right. Exam: 01:58 Constitutional: This is a well developed, well nourished patient who is awake, alert, malinda and in no acute distress. Head/Face: Normocephalic, atraumatic. Eyes: Pupils equal round and reactive to light, extra-ocular motions intact. Lids and lashes normal. Conjunctiva and sclera are non-icteric and not injected. Cornea within normal limits. Periorbital areas with no swelling, redness, or edema. ENT: Nares patent. No nasal discharge, no septal abnormalities noted. Tympanic membranes are normal and external auditory canals are clear. Oropharynx with no redness, swelling, or masses, exudates, or evidence of obstruction, uvula midline. Mucous membranes moist. Neck: Trachea midline, no thyromegaly or masses palpated, and no cervical lymphadenopathy. Supple, full range of motion without nuchal rigidity, or vertebral point tenderness. No Meningismus. Chest/axilla: Normal chest wall appearance and motion. Nontender with no deformity. No lesions are appreciated. Cardiovascular: Regular rate and rhythm with a normal S1 and S2. No gallops, murmurs, or rubs. Normal PMI, no JVD. No pulse deficits. Respiratory: Lungs have equal breath sounds bilaterally, clear to auscultation and percussion. No rales, rhonchi or wheezes noted. No increased work of breathing, no retractions or nasal flaring. Female : Normal external genitalia. Skin: Warm, dry with normal turgor. Normal color with no rashes, no lesions, and no evidence of cellulitis. MS/ Extremity: Pulses equal, no cyanosis. Neurovascular intact. Full, normal range of motion. Neuro: Awake and alert, GCS 15, oriented to person, place, time, and situation. Cranial nerves II-XII grossly intact. Motor strength 5/5 in all extremities. Sensory grossly intact. Cerebellar exam normal. Normal gait. 01:58 Abdomen/GI: Inspection: abdomen appears normal, Bowel sounds: normal, Palpation: mild abdominal tenderness, in the posterior aspect of right lateral abdomen and anterior aspect of right lateral abdomen. 01:58 Back: pain, that is mild, ROM is normal, normal spinal alignment noted, CVA tenderness, that is mild, is noted on the right. 02:21 Musculoskeletal/extremity: DVT Exam: No signs of deep vein thrombosis. no pain, no malinda swelling, no tenderness, negative Homans' sign noted on exam, no appreciated bluish discoloration, no erythema, no increased warmth. Vital Signs: 00:39 BP 109 / 52; Pulse 83; Resp 18; Temp 98.5(O); Pulse Ox 99% on R/A; Weight 79.38 kg; fc Height 5 ft. 2 in. (157.48 cm); Pain 5/10; 01:36 BP 98 / 72; Pulse 67; Resp 16; Pulse Ox 100% on R/A; aa1 02:45 BP 121 / 65; Pulse 63; Resp 16; Pulse Ox 100% on R/A; aa1 03:30 BP 103 / 61; Pulse 74; Resp 16; Pulse Ox 100% on R/A; aa1 04:30 BP 97 / 56; Pulse 54; Resp 14; Pulse Ox 99% ; bp 00:39 Body Mass Index 32.01 (79.38 kg, 157.48 cm) MDM: 00:45 Patient medically screened. [facility] 02:01 Data reviewed: vital signs, nurses notes, lab test result(s), EKG, radiologic studies, [facility] plain films. 06/23 00:50 Order name: Amylase, Serum; Complete Time: 06/23 00:50 Order name: Basic Metabolic Panel; Complete Time: 06/23 00:50 Order name: CBC with Diff; Complete Time: 06/23 00:50 Order name: Creatinine for Radiology; Complete Time: 06/23 00:50 Order name: Hepatic Function; Complete Time: 06/23 00:50 Order name: Lipase; Complete Time: 06/23 00:50 Order name: Urine Test (obtain specimen); Complete Time: 01:36 aa 06/23 00:50 Order name: Urine Microscopic Only; Complete Time: 01:57 aa 06/23 00:50 Order name: IV Saline Lock; Complete Time: 01:36 aa1 06/23 01:08 Order name: Urine Dipstick--Ancillary (enter results) [facility] 06/23 01:08 Order name: Urine --Ancillary (enter results); Complete Time: 01:57 [facility] 06/23 01:08 Order name: Urine Dipstick-Ancillary; Complete Time: 01:57 [facility] 06/23 01:58 Order name: CT Abd/Pelvis - W/Contrast: iv only [facility] 06/23 00:50 Order name: Labs collected and sent; Complete Time: 01:36 aa 06/23 00:50 Order name: Urine Dipstick-Ancillary (obtain specimen); Complete Time: :36 aa Administered Medications: 02:15 Drug: Potassium Chloride 20 mEq Route: PO; aa1 04:40 Follow up: Response: No adverse reaction bp Disposition: 06/23/18 04:31 Discharged to Home. Impression: Abdominal tenderness, Hypokalemia. - Condition is Stable. - Discharge Instructions: Abdominal Pain, Adult, Potassium Content of Foods, Abdominal Pain, Adult, Gnes-tq-Xurz, Hypokalemia. - Prescriptions for Pepcid 20 mg Oral Tablet - take 1 tablet by ORAL route every 12 hours for 10 days; 20 tablet. Tylenol- Codeine #3 300-30 mg Oral Tablet - take 2 tablets by ORAL route every 6 hours As needed; 24 tablet. - Medication Reconciliation Form, Thank You Letter, Antibiotic Education, Prescription Opioid Use form. - Follow up: Private Physician; When: 2 - 3 days; Reason: Recheck today's complaints, Continuance of care, Re-evaluation by your physician. - Problem is new. - Symptoms have improved. Signatures: Dispatcher [employer] EDMS Lorene Mariscal RN RN aa1 Sudarshan Holliday MD MD cha Chretien, Felicia, RN RN fc Peltier, Brian, RN RN bp Corrections: (The following items were deleted from the chart) 04:43 04:31 06/23/2018 04:31 Discharged to Home. Impression: Abdominal tenderness; bp Hypokalemia. Condition is Stable. Discharge Instructions: Abdominal Pain, Adult, Abdominal Pain, Adult, Ngse-ml-Dels, Potassium Content of Foods, Hypokalemia. Prescriptions for Pepcid 20 mg Oral Tablet - take 1 tablet by ORAL route every 12 hours for 10 days; 20 tablet, Tylenol-Codeine #3 300-30 mg Oral Tablet - take 2 tablets by ORAL route every 6 hours As needed; 24 tablet. and Forms are Medication Reconciliation Form, Thank You Letter, Antibiotic Education, Prescription Opioid Use. Follow up: Private Physician; When: 2 - 3 days; Reason: Recheck today's complaints, Continuance of care, Re-evaluation by your physician. Problem is new. Symptoms have improved. malinda
--- NOTE | 2018-06-23 08:37 | RAD REPORT ---
EXAM DESCRIPTION: CTAbdomen Pelvis W Contrast - 06/23/2018 5:22 am CLINICAL HISTORY: Abdominal pain. ABD PAIN COMPARISON: <Comparisons> TECHNIQUE: Biphasic CT imaging of the abdomen and pelvis was performed with 100 ml non-ionic IV cont rast. All CT scans are performed using dose optimization technique as appropriate and may include automated exposure control or mA/KV adjustment according to patient size. FINDINGS: The lung bases are clear. The liver, spleen, pancreas, adrenal glands and kidneys are within normal limits. No bowel obstruction, free air, intra-abdominal free fluid or abscess. The appendix is normal. No e vidence of significant lymphadenopathy. No suspicious bony findings. Trace pelvic free fluid, likely physiologic. IMPRESSION: No acute intra-abdominal or pelvic finding.
== END 2018-06-23 04:43 | disposition home or self-care (01) ==
LOC: ER 00:24
DX: R10.11 Right upper quadrant pain (principal); E87.6 Hypokalemia
CPT/HCPCS: 36415; 74177; 80048; 80076; 81003; 81015; 81025; 82150; 83690; 85025; 99284; Q9967